=== PATIENT | female | born 1970 | race Caucasian/White ===

== ENCOUNTER → 2016-06-27 | Outpatient (CLI) | payer MEDICARE ==
[~2016-06-27] MED LIST: ACETAMINOPHEN-H1 TA2 PO; ATIVAN0.5 MG PO; CIPROFLOXACIN500 M4 PO; D-1000 185 MG-11 TAB PO; GILENYA PO; K-Dur 20MEQ20 MEQ PO; MAGNESIUM200 MG PO; MOTRIN800 MG PO; MULTI VITAMINS1 TAB PO; NEURONTIN300 MG PO; PANTOPRAZOLE SO40 MG PO
== END | disposition home or self-care (01) ==
LOC: MAMMO 13:00
DX: Z12.31 Encounter for screening mammogram for malignant neoplasm of breast (principal); N93.9 Abnormal uterine and vaginal bleeding, unspecified; D25.0 Submucous leiomyoma of uterus; M25.572 Pain in left ankle and joints of left foot; G89.29 Other chronic pain

== ENCOUNTER → 2016-07-25 | Day surgery (SDC) | payer MEDICARE ==
[2016-07-21 08:56] LABS: HEMATOCRIT 34.5 % (37.0-47.0); HEMOGLOBIN 10.4 g/dl (12.0-16.0); MEAN CELL VOLUME 88.2 fl (81.0-99.0); MEAN CORPUSCULAR HGB 26.6 pg (27.0-31.0); MEAN CORPUSCULAR HGB CONC 30.1 g/dl (33.0-37.0); PLATELET COUNT AUTOMATED 156 10*3/uL (130-400); RED BLOOD COUNT 3.91 10*6/uL (4.10-5.10); RED CELL DISTRI WIDTH 16.6 % (0-14.5); WHITE BLOOD COUNT 3.9 10*3/uL (4.8-10.8)
[2016-07-21 09:25] LABS: LYMPHOCYTE # 0.4 10*3/uL (1.3-4.4); MONOCYTE # 0.2 10*3/uL (0.1-1.0); NEUTROPHIL # 3.2 10*3/uL (2.3-7.9); NEUTROPHILS 83 % (47-73); OVALOCYTES FEW; PLATELET SUFFICIENCY NORMAL (NORMAL); TOTAL CELLS COUNTED 100 #CELLS
[~2016-07-25] VITALS: Ht 165.1 cm; Wt 63.5 kg
[~2016-07-25] MED LIST changes: +VITAMIN D400 IU PO
--- NOTE | ~2016-07-25 | O ---
[place], [place] OPERATIVE NOTE NAME: [facility] [id number] UNIT #: [id number] ROOM: DOCTOR: SEVEN MAHONEY MD BIRTHDATE: [birth year] DOS: 07/25/2016 PREOPERATIVE DIAGNOSES: Significant hypermenorrhea leading in the past to significant anemia. There was also a small posterior fundal submucosal fibroid noted per ultrasound, which was not really appreciated at the time of surgery. POSTOPERATIVE DIAGNOSES: Significant hypermenorrhea leading in the past to significant anemia. There was also a small posterior fundal submucosal fibroid noted per ultrasound, which was not really appreciated at the time of surgery. OPERATION: Hysteroscopy, D and C, and NovaSure endometrial ablation. SURGEON: Debora. ANESTHESIA: MAC with 2% Nesacaine local paracervical anesthetic as well. ESTIMATED BLOOD LOSS: Minimal. REPLACEMENTS: IV fluids and Toradol. COMPLICATIONS: There were no complications. CONDITION: The patient's condition to recovery stable. OPERATIVE SUMMARY: The patient was taken to the operating room in supine position. MAC anesthesia, lithotomy position, prepped and draped in routine manner. Cervix was grasped. Paracervical block 2% Nesacaine, 5 mL each at 4 and 7 o'clock respectively were placed. We then sounded the uterus to 10.5 cm dilated the cervix and performed a thorough hysteroscopy noting the fundus, the cornual region, the body of the uterus, lower uterine segment all were grossly within normal limits. We did look specifically for this posterior fundal submucosal fibroid and there was a hint of a slight endometrial indentation per this in the posterior upper fundus, but did not appear to have any significant clinical consequence. Once this was completed, we performed a thorough D and C and used stone forceps as well to remove additional tissue. Once this was completed we set our NovaSure device to the appropriate depth and then we achieved, the appropriate width and after noting that the cavity was intact per the CO2 challenge we performed an endometrial ablation without complication. The NovaSure device was removed. Repeat hysteroscopy revealed an excellent global ablation and no other atypicalities noted. The hysteroscope and tenaculum removed. Silver nitrate was utilized. The 2 tenaculum sites with good hemostasis noted. The patient was then cleaned off, taken out of lithotomy position, awakened and transferred to recovery in satisfactory condition with stable vital signs. Adequate hemostasis, and stable sponge and instrument count. She had been straight cathed at the beginning on the case with about 45 mL of clear urine obtained. [place], [place] OPERATIVE NOTE NAME: REJI DALAL UNIT #: [id number] ROOM: DOCTOR: SEVEN MAHONEY MD BIRTHDATE: [birth year] SEVEN MAHONEY MD CM:OPRECORD:OPERATIVE NOTE 1153 1356 KRISTIN MAHONEY MD 07/25/16 1357 interface
--- NOTE | ~2016-07-25 | WRIGHTHP ---
[place], [place] PATIENT HISTORY AND PHYSICAL EXAM NAME: REJI DALAL [facility] #: [id number] UNIT #: [id number] ROOM: DOCTOR: SEVEN MAHONEY MD BIRTHDATE: [birth year] DOS: 07/25/2016 HISTORY OF PRESENT ILLNESS: This 45-year-old white female, 4, para 4 with 1 set of twins equaling 5 living whose is status post vasectomy had her last period 06/28/2016, who presented to the office on 07/06/2016 with a very intriguing history. The patient states that she has had very light and short periods of only 3-day duration throughout her entire reproductive history, especially into the 40s. She has undergone for summaries an H and H on 04/27/2016, which was listed as 4.1/16.5. She was out shopping at the time and having absolutely no issues, but had been contacted and ended up going to a massage therapy instructor in [place]. No bone marrow procedure was done; no colonoscopy was done at that time. She had an adverse reaction to IV iron therapy that was initiated, and when she presented to the office, was on p.o. iron therapy. She also had received 3 units of packed red blood cells and her H and H had risen to 10.2/34.1. This was noted on 06/24/2016. It was interesting that the patient states that while she was receiving the transfusion, she started a very heavy 7-day period, 4 days of which were really quite significant. She repeated the process in May. She then had an ultrasound on 06/27/2016 revealing normal adnexa and normal sized uterus, but also noted a small posterior fundal submucosal fibroid. Of note is that this significant anemia that had been detected when the patient was having minimal menses. The patient today does not have any answer for why she had severe anemia. The patient when she presented to the office desired a hysterectomy. We reviewed her multiple sclerosis disorder and the other therapy options including control pills, cyclic progesterone, Mirena IUD, and NovaSure and again advised the patient that hysterectomy at least at present would probably not be in her best interest. The couple reviewed the NovaSure information and advised that they would like to in fact proceed with the NovaSure ablation at this time. The indications, potential complications, alternatives were reviewed with the patient and her , understanding was stated and the consent has been signed. PAST MEDICAL HISTORY: Reveals a history of actually hypotension, multiple sclerosis, and then of course the iron deficiency anemia. Her last Pap recently was negative. Last mammogram recently was negative as well. She has had, as I said, 4 pregnancies and 5 children. She has had an upper GI endoscopy, which was negative. She states to having had a history of a blood transfusion in 2015, but she had mentioned none of that to me and I am not sure what that transfusion was all about. SOCIAL HISTORY: The patient does not smoke and does not drink. MEDICATIONS: She does take Gilenya 0.5 mg 1 p.o. every day for her MS. She is on Ferrex 150 mg daily for her anemia, gabapentin 300 mg b.i.d. for MS and seizure prevention, [place] 5/325 one p.o. up to q. 6 hours on a p.r.n. basis for her MS and pain, vitamin D 2000 units daily, and Ativan 0.5 mg b.i.d. for anxiety. ALLERGIES: INCLUDE CODEINE AND LATEX GLOVES. REVIEW OF SYSTEMS: Otherwise is normal. [place], [place] PATIENT HISTORY AND PHYSICAL EXAM NAME: REJI DALAL UNIT #: [id number] ROOM: DOCTOR: SEVEN MAHONEY MD BIRTHDATE: [birth year] FAMILY HISTORY: Reveals her mother and the disease process that the patient lists is scoliosis and osteoporosis. Otherwise, the family history is clean. PHYSICAL EXAMINATION: GENERAL: Reveals a very pleasant 5 feet 5 inches, 133-pound white female in no significant distress with a BMI of 22.1. VITAL SIGNS: Blood pressure is 148/82. HEENT AND NECK: Grossly intact. LUNGS: Grossly intact. CARDIAC: Grossly intact. BREASTS: Grossly intact. ABDOMEN: Grossly intact. EXTREMITIES: Grossly intact. NEUROLOGIC: Grossly intact and really, the only MS symptomatology is much more subtle and activated with only certain activities, motion, speech, etc., and vision, but not readily apparent on a basic neurologic exam. GENITOURINARY: External genitalia, vagina, and cervix were normal; again, a recent Pap being negative. The uterus is anteverted and anteflexed, normal in size and configuration, nontender, mobile. Adnexa were negative. RECTAL: Negative. Stool Hematest negative. ASSESSMENT AND PLAN: The patient with significant hypermenorrhea, but with regular cycles and a small posterior fundal submucosal fibroid. The anemia preceded the heavy flow, and at this time, I have made it very clear to the patient and her that I am not certain that stopping the periods will alter this anemia, as it appears that she may have even had it 2 years ago, but did not mention it to me in her history taking and certainly, this severe anemia without any kind of heavy flow according to the patient, certainly does make us concerned about what the actual etiology for this is. In that respect, however, we will treat the hypermenorrhea that has developed in an effort to try to be helpful, but the couple understands that they may need to still further pursue this anemia even after the successful ablation. To that end, on 07/25/2016, the patient will be brought to outpatient surgery and undergo hysteroscopy, D and C, and NovaSure endometrial ablation. [place], [place] PATIENT HISTORY AND PHYSICAL EXAM [facility]: [id number] UNIT #: [id number] ROOM: DOCTOR: SEVEN MAHONEY MD BIRTHDATE: [birth year] SEVEN MAHONEY MD CM:HISPHYS:PATIENT HISTORY AND PHYSICAL EXAMINATION 1401 1431 SEVEN MAHONEY MD 07/21/16 0837 interface
[2016-07-25 10:29] VITALS: BP 151/78
[2016-07-25 11:40] VITALS: BP 110/52
[2016-07-25 11:55] VITALS: BP 114/62
== END | disposition home or self-care (01) ==
LOC: SDC 07-21 08:00
PROVIDERS: Obstetrics & Gynecology
DX: N84.0 Polyp of corpus uteri (principal); D25.0 Submucous leiomyoma of uterus; N92.0 Excessive and frequent menstruation with regular cycle; D50.8 Other iron deficiency anemias; G35 Multiple sclerosis; I10 Essential (primary) hypertension; K21.9 Gastro-esophageal reflux disease without esophagitis; Z87.891 Personal history of nicotine dependence; Z82.49 Family history of ischemic heart disease and other diseases of the circulatory system; Z80.9 Family history of malignant neoplasm, unspecified

== ENCOUNTER 2016-09-16 22:05 | Emergency (ER) | payer MEDICARE ==
[~2016-09-16] VITALS: Ht 162.5 cm; Wt 59.0 kg
[2016-09-17 00:44] VITALS: BP 140/71
== END 2016-09-17 01:07 | disposition short-term general hospital (02) ==
LOC: ED 22:05
DX: S52.121A Displaced fracture of head of right radius, initial encounter for closed fracture (principal); S52.614A Nondisplaced fracture of right ulna styloid process, initial encounter for closed fracture; Z88.6 Allergy status to analgesic agent; Z91.040 Latex allergy status; Z79.899 Other long term (current) drug therapy; W18.30XA Fall on same level, unspecified, initial encounter; Y93.89 Activity, other specified; Y92.009 Unspecified place in unspecified non-institutional (private) residence as the place of occurrence of the external cause; Y99.9 Unspecified external cause status

== ENCOUNTER → 2016-09-19 | Outpatient (CLI) | payer MEDICARE ==
--- NOTE | ~2016-09-19 | EKG ---
[place], [place] ELECTROCARDIOGRAM REPORT NAME: REJI DALAL UNIT #: [id number] ROOM: DOCTOR: RASHIDA ANDERSON MD BIRTHDATE: [birth year] DOS: 09/19/2016 TIME: 1549 hours Normal sinus rhythm with 67 beats per minute. The tracing is normal. No previous tracing is available for comparison. RASHIDA ANDERSON MD CM:EKGRPT:ELECTROCARDIOGRAM REPORT 1653 1803 RASHIDA ANDERSON MD
== END | disposition home or self-care (01) ==
LOC: ORTHO 10:38
DX: S52.501D Unspecified fracture of the lower end of right radius, subsequent encounter for closed fracture with routine healing (principal); S52.614D Nondisplaced fracture of right ulna styloid process, subsequent encounter for closed fracture with routine healing; X58.XXXD Exposure to other specified factors, subsequent encounter

== ENCOUNTER → 2016-09-22 | Day surgery (SDC) | payer MEDICARE ==
[2016-09-19 14:41] VITALS: BP 127/65
[2016-09-19 15:49] LABS: BASO % 0.6 % (0.0-1.0); EOS # 0.1 10*3/uL (0.0-0.4); HEMATOCRIT 33.7 % (37.0-47.0); HEMOGLOBIN 10.2 g/dl (12.0-16.0); LYMPH # 0.5 10*3/uL (1.3-4.4); LYMPH % 11.1 % (27.0-41.0); MEAN CORPUSCULAR HGB 26.6 pg (27.0-31.0); MEAN CORPUSCULAR HGB CONC 30.3 g/dl (33.0-37.0); MEAN PLATELET VOLUME 11.7 fl (9.6-12.3); MONO # 0.5 10*3/uL (0.1-1.0); MONO % 10.7 % (3.0-9.0); NEUT # 3.7 10*3/uL (2.3-7.9); NEUT % 76.4 % (47.0-73.0); PLATELET COUNT AUTOMATED 251 10*3/uL (130-400); RED BLOOD COUNT 3.83 10*6/uL (4.10-5.10); RED CELL DISTRI WIDTH 16.3 % (0-14.5); WHITE BLOOD COUNT 4.8 10*3/uL (4.8-10.8)
[2016-09-19 15:53] LABS: BILIRUBIN NEGATIVE (NEGATIVE); BLOOD 3+ (NEGATIVE); CLARITY CLOUDY (CLEAR); COLOR YELLOW (YELLOW); GLUCOSE NEGATIVE (NEGATIVE); KETONE 1+ (NEGATIVE); LEUKO ESTERASE 2+ (NEGATIVE); NITRITE POSITIVE (NEGATIVE); PROTEIN NEGATIVE (NEGATIVE); SPECIFIC GRAVITY 1.015 (1.005-1.030); UROBILINOGEN 0.2 E.U./dl (0.2-1.0)
[2016-09-19 16:01] LABS: BUN 10 mg/dl (7-24); CARBON DIOXIDE 27 mmol/L (21-32); CHLORIDE 106 mmol/L (98-107); EST GLOM FILT AFRICAN AMERICAN > 60 ml/min; GLUCOSE 93 mg/dL (65-99); POTASSIUM 3.9 mmol/L (3.5-5.1); SODIUM 142 mmol/L (136-145)
[2016-09-19 16:03] LABS: WBC 31-40 wbc/hpf (0-5)
[2016-09-19 16:05] LABS: BACTERIA 3+
[2016-09-22] VITALS (9 sets, daily range): BP systolic 118–141; BP diastolic 41–78
[~2016-09-22] VITALS: Ht 165.1 cm; Wt 63.5 kg
[~2016-09-22] MED LIST changes: +HYDROCODONE BIT1 T11 PO; +ZOFRAN4 MG PO
--- NOTE | ~2016-09-22 | O ---
[place], [place] OPERATIVE NOTE NAME: REJI DALAL [facility] #: [id number] UNIT #: [id number] ROOM: DOCTOR: DENIS HEMANT BIRTHDATE: [birth year] DATE: 09/22/16 PREOPERATIVE DIAGNOSIS: Right distal radius fracture POSTOPERATIVE DIAGNOSIS: Right distal radius fracture and ulnar styloid OPERATION: Right distal radius fracture open reduction internal fixation OPERATIVE FINDINGS AND PROCEDURE: INDICATIONS: The patient is a 45 year old female who has reported that she fell backwards onto right wrist and has pain and disability about the right wrist. The patient was initially seen and evaluated by the ER staff, placed in a well-padded splint. X-rays indicated a comminuted and displaced fracture. Risks and benefits of the procedure were explained to the patient preoperatively. Preoperative labs and x-rays were obtained. DESCRIPTION OF PROCEDURE: The right upper extremity was marked in the holding room. The patient was brought to the operative suite. The patient received Ancef IV piggyback. Timeout was performed. The right upper extremity was prepped and draped in the usual orthopedic fashion. The incision was planned along the flexor carpi radialis and marked with a marking pen. The extremity was exsanguinated and the tourniquet was inflated to 250 mmHg. Under loupe magnification, the incision was made sharply with a scalpel. Subcutaneous tissue was spread down to the level of the flexor tendons. These were retracted ulnarly. The pronator quadratus was released. The fracture site was identified and copiously irrigated with normal saline. This was noted to be an interarticular metaphyseal fracture that went into the radial carpal joint as well as the distal radial ulnar joint. There was significant displacement and articular incongruence. The reduction was obtained and a [employer]ume[employer] distal radius volar plate was put into place and held with a K-wire. The position was evaluated under C-arm. The oblong hole of the long arm of the plate was drilled adn filled with the appropriate 3.5 mm screw. The K-wire was removed. The plate was adjusted as needed distally and proximally as evaluation was performed under C-arm. The fastset guides of the plate were drilled, measured, removed and filled with the appropriate size, smooth peg, and a single peg screw was used at the level of the radial styloid process. When this was completed, the reduction was evaluated under C-arm and noted to be adequate with good radial height and articular congruency. The remaining two holes within the long arm of the plate were drilled and filled with 3.5 mm screws. All fixations were evaluated and tightened as indicated. Position was evaluated on C-arm in multiple planes and found to have adequate positioning of the plate and the fracture site with good articular congruency. The tourniquet was released. The area was copiously irrigated with normal saline. Any active bleeding was controlled electrocautery. The radial artery was noted to be intact. The pronator quadratus was repaired using 2-0 Vicryl. The flexor tendons were allowed to return to their natural position. The closure was completed with 4-0 Prolene in a horizontal mattress suture fashion. The fracture site was injected from a dorsal position. Xeroform, 4 x 4s, and a well-padded volar and dorsal splint were applied followed by an Marvin bandage. The anesthetic was reversed. The patient was extubated and taken to the recovery room in [place], [place] OPERATIVE NOTE NAME: REJI DALAL UNIT #: [id number] ROOM: DOCTOR: HEMANT BARRIOS DO BIRTHDATE: [birth year] satisfactory condition. Sponge and need count correct. ESTIMATED BLOOD LOSS: SPECIMENS: None. DRAINS: None PACKING: None. COMPLICATIONS: None. IMPLANTS: [employer] DVRASR radial plate Pegs smooth Pegs screw 3.5 cortical screws measuring HEMANT BARRIOS DO CM:OPRECORD:OPERATIVE NOTE 1553 1553 HEMANT BARRIOS DO 10/05/16 1725 JUAN MANUEL MONTELONGO MIS.R
[2016-09-22 07:58] LABS: BILIRUBIN NEGATIVE (NEGATIVE); BLOOD TRACE-INTACT (NEGATIVE); CLARITY CLOUDY (CLEAR); GLUCOSE NEGATIVE (NEGATIVE); KETONE NEGATIVE (NEGATIVE); LEUKO ESTERASE TRACE (NEGATIVE); NITRITE NEGATIVE (NEGATIVE); PH 6.5 (5.0-9.0); PROTEIN NEGATIVE (NEGATIVE); SPECIFIC GRAVITY 1.025 (1.005-1.030)
[2016-09-22 08:08] LABS: COLOR YELLOW (YELLOW)
[2016-09-22 08:09] LABS: BACTERIA 4+; WBC 16-20 wbc/hpf (0-5)
== END | disposition home or self-care (01) ==
LOC: SDC 09-20 01:15
PROVIDERS: Orthopaedic Surgery
DX: S52.501A Unspecified fracture of the lower end of right radius, initial encounter for closed fracture (principal); S52.571A Other intraarticular fracture of lower end of right radius, initial encounter for closed fracture; W18.30XA Fall on same level, unspecified, initial encounter; Y93.89 Activity, other specified; Y92.89 Other specified places as the place of occurrence of the external cause; Y99.8 Other external cause status; G35 Multiple sclerosis; I10 Essential (primary) hypertension; K21.9 Gastro-esophageal reflux disease without esophagitis; F41.9 Anxiety disorder, unspecified; Z98.890 Other specified postprocedural states; Z88.8 Allergy status to other drugs, medicaments and biological substances; Z82.49 Family history of ischemic heart disease and other diseases of the circulatory system; Z80.9 Family history of malignant neoplasm, unspecified

== ENCOUNTER → 2016-11-07 | Outpatient (CLI) | payer MEDICARE | END | disposition home or self-care (01) | LOC: ORTHO 08:00 | DX: S52.501D Unspecified fracture of the lower end of right radius, subsequent encounter for closed fracture with routine healing (principal); X58.XXXD Exposure to other specified factors, subsequent encounter ==

== ENCOUNTER → 2016-12-05 | Outpatient (CLI) | payer MEDICARE | END | disposition home or self-care (01) | LOC: ORTHO 01:38 | DX: S52.511D Displaced fracture of right radial styloid process, subsequent encounter for closed fracture with routine healing (principal); X58.XXXD Exposure to other specified factors, subsequent encounter ==

== ENCOUNTER → 2017-01-09 | Outpatient (CLI) | payer MEDICARE | END | disposition home or self-care (01) | LOC: ORTHO 03:29 | DX: S52.501D Unspecified fracture of the lower end of right radius, subsequent encounter for closed fracture with routine healing (principal); X58.XXXD Exposure to other specified factors, subsequent encounter ==

== ENCOUNTER → 2017-02-06 | Outpatient (CLI) | payer MEDICARE | LOC: ORTHO 03:49 | DX: M19.90 Unspecified osteoarthritis, unspecified site (principal) ==

== ENCOUNTER → 2017-06-19 | Outpatient (CLI) | payer MEDICARE | END | disposition home or self-care (01) | LOC: MRI 09:00 | DX: M47.892 Other spondylosis, cervical region (principal); M53.82 Other specified dorsopathies, cervical region ==

== ENCOUNTER → 2017-07-05 | Outpatient (CLI) | payer MEDICARE | END | disposition home or self-care (01) | LOC: RAD 10:47 | DX: N95.9 Unspecified menopausal and perimenopausal disorder (principal); G35 Multiple sclerosis; M19.90 Unspecified osteoarthritis, unspecified site; S52.90XD Unspecified fracture of unspecified forearm, subsequent encounter for closed fracture with routine healing; X58.XXXD Exposure to other specified factors, subsequent encounter ==

== ENCOUNTER → 2017-10-25 | Day surgery (SDC) | payer OTHER ==
[~2017-10-25] VITALS: Ht 165.1 cm; Wt 59.0 kg
--- NOTE | ~2017-10-25 | O ---
[place], [place] OPERATIVE NOTE NAME: REJI DALAL [facility] #: [id number] UNIT #: [id number] ROOM: DOCTOR: TIM COTTON MD BIRTHDATE: [birth year] DOS: 10/25/2017 PREOPERATIVE DIAGNOSIS: Cataract, right eye. POSTOPERATIVE DIAGNOSIS: Cataract, right eye. OPERATION: Extracapsular cataract extraction by phacoemulsification with posterior chamber intraocular lens implantation, right eye. ANESTHESIA: Monitored standby. OPERATIVE FINDINGS AND PROCEDURE: 2% Xylocaine topical anesthetic gel was applied to the eye in the preop area. The patient was taken to the operating room and prepped and draped in the standard fashion for sterile intraocular surgery. A time out procedure was performed verifying correct patient, correct site and corrects lens with Gorge Cotton M.D. The operating microscope was swung into position and the lid speculum was inserted. Using a 15-angulated Super blade, a paracentesis was made through clear cornea. Air was used to fill the anterior chamber followed by the instillation of Trypan blue, which was painted on the anterior capsule. Viscoelastic was used to fill the anterior chamber. Using a metal keratome a 2.4 mm self-sealing clear corneal cataract incision was made temporally at the limbus. Using a pre-bent 25 gauge cystotome needle, a standard continuous curvilinear capsulorrhexis was performed. The anterior capsule was removed with forceps. The lens nucleus was hydrodissected and phacoemulsified in the posterior chamber. Cortical material was removed with the irrigation aspiration hand piece and the posterior capsule was then polished with a curet under irrigation. The posterior chamber and capsular bag were filled with viscoelastic. A posterior chamber intraocular lens manufactured by: [employer], [id number], and 23.0 diopters in strength were then inserted into the posterior chamber and within the capsular bag using the lens cartridge and injector system. Viscoelastic was removed using the irrigation aspiration handpiece. The anterior chamber was filled with balanced salt solution through the paracentesis. Both the paracentesis site and cataract incisions were hydrated with BSS and verified to be water-tight and self-sealing. Cefuroxime 1 mg/0.1 mL was injected into the anterior chamber through the paracentesis site. The incision checked to be water-tight using a Weck-Eda sponge. The integrity of the cataract wound and ocular tension were checked. Lid speculum and drapes were removed. The patient was transferred from the operating room to the recovery room in satisfactory condition. [place], [place] OPERATIVE NOTE NAME: REJI DALAL UNIT #: [id number] ROOM: DOCTOR: TIM COTTON MD BIRTHDATE: [birth year] TIM COTTON MD CM:OPRECORD:OPERATIVE NOTE 0821 1001 TIM COTTON MD 10/25/17 0959 interface
[2017-10-25 06:30] VITALS: BP 141/47
[2017-10-25 08:09] VITALS: BP 126/66
[2017-10-25 08:21] VITALS: BP 132/70
[2017-10-25 08:38] VITALS: BP 126/77
== END | disposition home or self-care (01) ==
LOC: SDC 10-20 08:00
DX: H25.811 Combined forms of age-related cataract, right eye (principal); I10 Essential (primary) hypertension; K21.9 Gastro-esophageal reflux disease without esophagitis; M19.90 Unspecified osteoarthritis, unspecified site; D64.9 Anemia, unspecified; G35 Multiple sclerosis; F41.8 Other specified anxiety disorders; Z90.710 Acquired absence of both cervix and uterus; Z88.5 Allergy status to narcotic agent; Z91.040 Latex allergy status; Z79.899 Other long term (current) drug therapy; Z87.891 Personal history of nicotine dependence; Z80.9 Family history of malignant neoplasm, unspecified; Z82.49 Family history of ischemic heart disease and other diseases of the circulatory system

== ENCOUNTER → 2019-05-17 | Outpatient (CLI) | payer OTHER ==
[2019-05-17 15:40] LABS: BASO # 0.1 10*3/uL (0.0-0.1); EOS # 0.1 10*3/uL (0.0-0.4); EOS % 1.4 % (1.0-4.0); HEMATOCRIT 32.6 % (37.0-47.0); HEMOGLOBIN 9.2 g/dl (12.0-16.0); LYMPH # 0.6 10*3/uL (1.3-4.4); LYMPH % 12.5 % (27.0-41.0); MEAN CELL VOLUME 84.7 fl (81.0-99.0); MEAN CORPUSCULAR HGB 23.9 pg (27.0-31.0); MEAN CORPUSCULAR HGB CONC 28.2 g/dl (33.0-37.0); MEAN PLATELET VOLUME 11.2 fl (9.6-12.3); MONO # 0.6 10*3/uL (0.1-1.0); MONO % 11.2 % (3.0-9.0); NEUT # 3.6 10*3/uL (2.3-7.9); NEUT % 73.7 % (47.0-73.0); PLATELET COUNT AUTOMATED 232 10*3/uL (130-400); RED BLOOD COUNT 3.85 10*6/uL (4.10-5.10); RED CELL DISTRI WIDTH 17.3 % (0-14.5); WHITE BLOOD COUNT 4.9 10*3/uL (4.8-10.8)
[2019-05-17 16:10] LABS: ALBUMIN 3.8 gm/dl (3.1-4.5); ALKALINE PHOSPHATASE 104 U/L (45-117); BUN 10 mg/dl (7-24); CHLORIDE 108 mmol/L (98-107); CHOLESTEROL 168 mg/dL (<200); HDL CHOLESTEROL 87 mg/dl (40-60); LDL CHOLESTEROL 63 mg/dL (9-159); POTASSIUM 3.6 mmol/L (3.5-5.1); SGOT/AST 13 IU/L (3-35); SGPT/ALT 23 U/L (12-78); SODIUM 142 mmol/L (136-145); TOTAL PROTEIN 7.4 gm/dL (6.4-8.2); TRIGLYCERIDES 90 mg/dl (<150); VLDL CHOLESTEROL 18 mg/dL (6-40)
== END | disposition home or self-care (01) ==
LOC: LAB 15:24
PROVIDERS: Internal Medicine
DX: Z13.1 Encounter for screening for diabetes mellitus (principal); I10 Essential (primary) hypertension; E78.2 Mixed hyperlipidemia; E55.9 Vitamin D deficiency, unspecified

== ENCOUNTER → 2019-11-15 | Outpatient (CLI) | payer OTHER | END | disposition home or self-care (01) | LOC: MRI 10:00 | DX: M48.02 Spinal stenosis, cervical region (principal); G35 Multiple sclerosis; M53.82 Other specified dorsopathies, cervical region ==

== ENCOUNTER → 2019-11-25 | Outpatient (CLI) | payer OTHER | END | disposition home or self-care (01) | LOC: MAMMO 13:52 | PROVIDERS: ATTEND Internal Medicine | DX: Z12.31 Encounter for screening mammogram for malignant neoplasm of breast (principal) ==

== ENCOUNTER → 2020-08-11 | Outpatient (CLI) | payer OTHER ==
[2020-08-11 13:39] LABS: BASO % 0.6 % (0.0-1.0); EOS # 0.1 10*3/uL (0.0-0.4); EOS % 1.3 % (1.0-4.0); HEMATOCRIT 35.9 % (37.0-47.0); LYMPH # 0.5 10*3/uL (1.3-4.4); LYMPH % 9.9 % (27.0-41.0); MEAN CELL VOLUME 88.9 fl (81.0-99.0); MEAN CORPUSCULAR HGB 27.5 pg (27.0-31.0); MEAN CORPUSCULAR HGB CONC 30.9 g/dl (33.0-37.0); MONO # 0.5 10*3/uL (0.1-1.0); MONO % 11.2 % (3.0-9.0); NEUT # 3.7 10*3/uL (2.3-7.9); NEUT % 76.8 % (47.0-73.0); PLATELET COUNT AUTOMATED 239 10*3/uL (130-400); RED BLOOD COUNT 4.04 10*6/uL (4.10-5.10); RED CELL DISTRI WIDTH 17.2 % (0-14.5); WHITE BLOOD COUNT 4.8 10*3/uL (4.8-10.8)
[2020-08-11 13:55] LABS: ALBUMIN 3.7 gm/dl (3.1-4.5); ALKALINE PHOSPHATASE 94 U/L (45-117); BUN 9 mg/dl (7-24); CHLORIDE 109 mmol/L (98-107); CHOLESTEROL 189 mg/dL (<200); CREATININE 0.66 mg/dL (0.55-1.02); FREE T4 0.93 ng/dl (0.76-1.46); LDL CHOLESTEROL 82 mg/dL (9-159); POTASSIUM 3.8 mmol/L (3.5-5.1); SGOT/AST 12 IU/L (3-35); SODIUM 141 mmol/L (136-145); TOTAL PROTEIN 7.5 gm/dL (6.4-8.2); TRIGLYCERIDES 78 mg/dl (<150)
[2020-08-11 14:00] LABS: SGPT/ALT 19 U/L (12-78)
== END | disposition home or self-care (01) ==
LOC: RAD 08-04 13:30 → LAB 13:18 → RAD 14:00
PROVIDERS: ATTEND Internal Medicine
DX: M85.89 Other specified disorders of bone density and structure, multiple sites (principal); I10 Essential (primary) hypertension; E78.2 Mixed hyperlipidemia; E55.9 Vitamin D deficiency, unspecified; Z78.0 Asymptomatic menopausal state; Z13.1 Encounter for screening for diabetes mellitus; Z13.21 Encounter for screening for nutritional disorder; Z00.01 Encounter for general adult medical examination with abnormal findings

== ENCOUNTER → 2020-10-21 | Outpatient (CLI) | payer OTHER | END | disposition home or self-care (01) | LOC: US 10:30 | PROVIDERS: ATTEND Internal Medicine | DX: I73.89 Other specified peripheral vascular diseases (principal); G90.09 Other idiopathic peripheral autonomic neuropathy ==

== ENCOUNTER → 2020-12-04 | Outpatient (CLI) | payer OTHER | END | disposition home or self-care (01) | LOC: RAD 12:51 | PROVIDERS: ATTEND Internal Medicine | DX: M77.32 Calcaneal spur, left foot (principal) ==

== ENCOUNTER → 2021-01-26 | Outpatient (CLI) | payer OTHER ==
[2021-01-26 13:34] LABS: BASO # 0.1 10*3/uL (0.0-0.1); BASO % 1.3 % (0.0-1.0); EOS # 0.1 10*3/uL (0.0-0.4); EOS % 1.1 % (1.0-4.0); HEMATOCRIT 34.8 % (37.0-47.0); LYMPH # 1.3 10*3/uL (1.3-4.4); LYMPH % 23.1 % (27.0-41.0); MEAN CELL VOLUME 95.9 fl (81.0-99.0); MEAN CORPUSCULAR HGB 27.5 pg (27.0-31.0); MEAN CORPUSCULAR HGB CONC 28.7 g/dl (33.0-37.0); MEAN PLATELET VOLUME 11.7 fl (9.6-12.3); MONO # 0.4 10*3/uL (0.1-1.0); MONO % 7.4 % (3.0-9.0); NEUT # 3.6 10*3/uL (2.3-7.9); NEUT % 66.7 % (47.0-73.0); PLATELET COUNT AUTOMATED 209 10*3/uL (130-400); RED BLOOD COUNT 3.63 10*6/uL (4.10-5.10); RED CELL DISTRI WIDTH 15.1 % (0-14.5); WHITE BLOOD COUNT 5.4 10*3/uL (4.8-10.8)
[2021-01-26 13:57] LABS: ALBUMIN 3.6 gm/dl (3.1-4.5); BUN 11 mg/dl (7-24); CHLORIDE 106 mmol/L (98-107); CREATININE 0.61 mg/dL (0.55-1.02); SGOT/AST 18 IU/L (3-35); SGPT/ALT 23 U/L (12-78); SODIUM 139 mmol/L (136-145); TOTAL PROTEIN 7.4 gm/dL (6.4-8.2)
[2021-01-26 13:58] LABS: ALKALINE PHOSPHATASE 92 U/L (45-117)
== END | disposition home or self-care (01) ==
LOC: LAB 12:58
PROVIDERS: ATTEND Physician Assistant Medical
DX: Z51.81 Encounter for therapeutic drug level monitoring (principal); G35 Multiple sclerosis

== ENCOUNTER → 2021-09-03 | Outpatient (CLI) | payer OTHER ==
[~2021-09-03] MED LIST changes: +AUBAGIO PO; +LISINOPRIL20 MG PO
[2021-09-03 13:31] LABS: BASO # 0.1 10*3/uL (0.0-0.1); BASO % 1.2 % (0.0-1.0); EOS # 0.1 10*3/uL (0.0-0.4); HEMATOCRIT 35.7 % (37.0-47.0); LYMPH # 1.4 10*3/uL (1.3-4.4); MEAN CORPUSCULAR HGB 29.2 pg (27.0-31.0); MEAN CORPUSCULAR HGB CONC 31.4 g/dl (33.0-37.0); MEAN PLATELET VOLUME 10.7 fl (9.6-12.3); MONO # 0.5 10*3/uL (0.1-1.0); MONO % 9.7 % (3.0-9.0); NEUT # 2.9 10*3/uL (2.3-7.9); NEUT % 59.9 % (47.0-73.0); PLATELET COUNT AUTOMATED 215 10*3/uL (130-400); RED BLOOD COUNT 3.84 10*6/uL (4.10-5.10); RED CELL DISTRI WIDTH 14.3 % (0-14.5); WHITE BLOOD COUNT 4.8 10*3/uL (4.8-10.8)
[2021-09-03 13:55] LABS: ALKALINE PHOSPHATASE 98 U/L (45-117); BUN 11 mg/dl (7-24); CREATININE 0.63 mg/dL (0.55-1.02); IRON 44 ug/dL (50-170); SGOT/AST 14 IU/L (3-35); SGPT/ALT 21 U/L (12-78); TOTAL PROTEIN 7.7 gm/dL (6.4-8.2)
[2021-09-03 14:01] LABS: CHLORIDE 108 mmol/L (98-107); SODIUM 140 mmol/L (136-145)
== END | disposition home or self-care (01) ==
LOC: LAB 12:59
PROVIDERS: ATTEND Internal Medicine
DX: Z13.220 Encounter for screening for lipoid disorders (principal); Z13.228 Encounter for screening for other metabolic disorders; Z13.0 Encounter for screening for diseases of the blood and blood-forming organs and certain disorders involving the immune mechanism; Z13.1 Encounter for screening for diabetes mellitus; Z13.21 Encounter for screening for nutritional disorder; Z13.29 Encounter for screening for other suspected endocrine disorder; Z13.89 Encounter for screening for other disorder; I10 Essential (primary) hypertension; R53.81 Other malaise; E61.1 Iron deficiency; R79.89 Other specified abnormal findings of blood chemistry

== ENCOUNTER → 2021-09-20 | Outpatient (CLI) | payer OTHER | END | disposition home or self-care (01) | LOC: MAMMO 11:18 | PROVIDERS: ATTEND Internal Medicine | DX: Z12.31 Encounter for screening mammogram for malignant neoplasm of breast (principal) ==

== ENCOUNTER → 2021-11-16 | Outpatient (CLI) | payer OTHER | END | disposition home or self-care (01) | LOC: US 12:22 | PROVIDERS: ATTEND Internal Medicine | DX: N93.9 Abnormal uterine and vaginal bleeding, unspecified (principal) ==

== ENCOUNTER → 2021-12-23 | Outpatient (CLI) | payer OTHER ==
[2021-12-24 08:08] LABS: FOLLICLE STIMULATING HORMONE 65.9 mIU/mL (.)
[2021-12-24 09:07] LABS: LUTEINIZING HORMONE 57.1 mIU/mL (.)
== END | disposition home or self-care (01) ==
LOC: LAB 14:06
PROVIDERS: ATTEND Obstetrics & Gynecology
DX: Z01.419 Encounter for gynecological examination (general) (routine) without abnormal findings (principal); N95.0 Postmenopausal bleeding

== ENCOUNTER → 2022-04-29 | Outpatient (CLI) | payer OTHER ==
[2022-04-29 14:58] LABS: BASO # 0.1 10*3/uL (0.0-0.1); BASO % 2.6 % (0.0-1.0); EOS # 0.1 10*3/uL (0.0-0.4); EOS % 3.1 % (1.0-4.0); HEMATOCRIT 30.2 % (37.0-47.0); LYMPH % 26.7 % (27.0-41.0); MEAN CELL VOLUME 81.8 fl (81.0-99.0); MEAN CORPUSCULAR HGB 22.8 pg (27.0-31.0); MEAN CORPUSCULAR HGB CONC 27.8 g/dl (33.0-37.0); MONO # 0.4 10*3/uL (0.1-1.0); MONO % 9.8 % (3.0-9.0); NEUT # 2.2 10*3/uL (2.3-7.9); NEUT % 57.5 % (47.0-73.0); PLATELET COUNT AUTOMATED 204 10*3/uL (130-400); RED BLOOD COUNT 3.69 10*6/uL (4.10-5.10); RED CELL DISTRI WIDTH 18.5 % (0-14.5); WHITE BLOOD COUNT 3.9 10*3/uL (4.8-10.8)
[2022-04-29 15:27] LABS: ALKALINE PHOSPHATASE 105 U/L (46-116); BUN 9 mg/dl (9-23); CHLORIDE 103 mmol/L (98-107); CHOLESTEROL 158 mg/dL (<200); FREE T4 0.88 ng/dl (0.89-1.76); LDL CHOLESTEROL 74 mg/dL (9-159); POTASSIUM 3.6 mmol/L (3.4-5.1); SGPT/ALT 19 U/L (10-49); THYROID STIM HORMONE (HS) 1.697 uIU/ml (0.550-4.780); TOTAL PROTEIN 7.5 gm/dL (6.0-8.0); TRIGLYCERIDES 64 mg/dl (<150)
[2022-04-29 15:45] LABS: VITAMIN D, 25-HYDROXY 110.7 ng/mL (30-100)
== END | disposition home or self-care (01) ==
LOC: LAB 14:20
PROVIDERS: ATTEND Internal Medicine
DX: I10 Essential (primary) hypertension (principal); E55.9 Vitamin D deficiency, unspecified; D50.8 Other iron deficiency anemias; Z13.1 Encounter for screening for diabetes mellitus; Z13.820 Encounter for screening for osteoporosis; Z13.89 Encounter for screening for other disorder; Z13.0 Encounter for screening for diseases of the blood and blood-forming organs and certain disorders involving the immune mechanism; Z13.21 Encounter for screening for nutritional disorder; Z13.220 Encounter for screening for lipoid disorders; Z13.228 Encounter for screening for other metabolic disorders

== ENCOUNTER → 2022-08-30 | Outpatient (CLI) | payer OTHER | END | disposition home or self-care (01) | LOC: MRI 14:00 | PROVIDERS: ATTEND Physician Assistant Medical | DX: G35 Multiple sclerosis (principal); R90.82 White matter disease, unspecified ==

== ENCOUNTER → 2022-09-15 | Outpatient (CLI) | payer OTHER | END | disposition home or self-care (01) | LOC: RAD 15:51 | PROVIDERS: ATTEND Internal Medicine | DX: R07.82 Intercostal pain (principal) ==

== ENCOUNTER 2023-04-15 15:44 | Emergency (ER) | payer OTHER ==
[~2023-04-15] VITALS: Ht 160 cm; Wt 59.0 kg
[2023-04-15 15:54] VITALS: BP 123/77
[2023-04-15] MEDS ORDERED: CELEXA10 MG PO (15:57)
[2023-04-15 16:28] LABS: BASO # 0.1 10*3/uL (0.0-0.1); BASO % 0.8 % (0.0-1.0); EOS # 0.1 10*3/uL (0.0-0.4); EOS % 1.1 % (1.0-4.0); HEMATOCRIT 36.1 % (37.0-47.0); LYMPH # 1.6 10*3/uL (1.3-4.4); LYMPH % 20.5 % (27.0-41.0); MEAN CELL VOLUME 90.9 fl (81.0-99.0); MEAN CORPUSCULAR HGB 27.5 pg (27.0-31.0); MEAN CORPUSCULAR HGB CONC 30.2 g/dl (33.0-37.0); MEAN PLATELET VOLUME 11.5 fl (9.6-12.3); MONO # 0.9 10*3/uL (0.1-1.0); MONO % 10.8 % (3.0-9.0); NEUT # 5.2 10*3/uL (2.3-7.9); NEUT % 66.5 % (47.0-73.0); PLATELET COUNT AUTOMATED 276 10*3/uL (130-400); RED BLOOD COUNT 3.97 10*6/uL (4.10-5.10); WHITE BLOOD COUNT 7.9 10*3/uL (4.8-10.8)
[2023-04-15 16:43] LABS: ACT PARTIAL THROMBO TIME 27.4 SECONDS (20.0-32.1)
[2023-04-15 16:51] LABS: ALKALINE PHOSPHATASE 111 U/L (46-116); BUN 11 mg/dl (9-23); CHLORIDE 108 mmol/L (98-107); POTASSIUM 3.2 mmol/L (3.4-5.1); SGPT/ALT 21 U/L (5-49); TOTAL PROTEIN 7.3 gm/dL (6.0-8.0)
[2023-04-15 19:28] LABS: BILIRUBIN Negative (Negative); BLOOD Negative (Negative); CLARITY Turbid (Clear); COLOR Yellow (Yellow); GLUCOSE Negative (Negative); KETONE Trace (Negative); LEUKO ESTERASE 2+ (Negative); NITRITE Negative (Negative); SPECIFIC GRAVITY 1.025 (1.001-1.030); UROBILINOGEN 0.2 E.U./dl (0.0-1.0)
[2023-04-15 19:47] LABS: BACTERIA 2+; TRIP PHOS CRYSTALS 1+
[2023-04-15] MEDS ORDERED: CEPHALEXIN500 M1 PO (19:50)
== END 2023-04-15 20:02 | disposition home or self-care (01) ==
LOC: ED 15:44
PROVIDERS: Nurse Practitioner
DX: M25.511 Pain in right shoulder (principal); M25.512 Pain in left shoulder; M25.551 Pain in right hip; M79.604 Pain in right leg; Z91.040 Latex allergy status; Z88.8 Allergy status to other drugs, medicaments and biological substances; Z88.5 Allergy status to narcotic agent; Z79.899 Other long term (current) drug therapy; W18.39XA Other fall on same level, initial encounter; Y93.89 Activity, other specified; Y92.89 Other specified places as the place of occurrence of the external cause; Y99.8 Other external cause status

== ENCOUNTER 2023-05-28 16:50 | Emergency (ER) | payer OTHER ==
[~2023-05-28] VITALS: Ht 162.5 cm; Wt 61.7 kg
[~2023-05-28 16:50] MED LIST changes: +CELEXA10 MG PO; +CEPHALEXIN500 M1 PO
[2023-05-28 17:03] VITALS: BP 122/53
[2023-05-28] MEDS ORDERED: FLUONAZOLE150 M1 PO (18:46)
[2023-05-28] MEDS ORDERED: AMOX-CLAV 875-1 EACH PO (18:46)
[2023-05-28] MEDS ORDERED: MUCINEX DM 30/61 TAB PO (18:46)
== END 2023-05-28 18:55 | disposition home or self-care (01) ==
LOC: ED 16:50
DX: J40 Bronchitis, not specified as acute or chronic (principal); Z20.822 Contact with and (suspected) exposure to COVID-19; D64.9 Anemia, unspecified; I10 Essential (primary) hypertension; K21.9 Gastro-esophageal reflux disease without esophagitis; F41.9 Anxiety disorder, unspecified; F17.210 Nicotine dependence, cigarettes, uncomplicated; Z91.040 Latex allergy status; Z88.5 Allergy status to narcotic agent; Z88.8 Allergy status to other drugs, medicaments and biological substances; Z98.890 Other specified postprocedural states

== ENCOUNTER → 2023-12-07 | Outpatient (CLI) | payer OTHER ==
[~2023-12-07] MED LIST changes: +AMITRIPTYLINE50 MG PO; +AMOX-CLAV 875-1 EACH PO; +FLUONAZOLE150 M1 PO; +IRON325 M1 PO; +METRONIDAZOLE500 M1 PO; +MIRTAZAPINE15 M2 PO; +MUCINEX DM 30/61 TAB PO
== END | disposition home or self-care (01) ==
LOC: LAB 03:00
PROVIDERS: ATTEND Nurse Practitioner Family
DX: K51.919 Ulcerative colitis, unspecified with unspecified complications (principal)